=== PATIENT | male | born 1940 | race Caucasian/White ===

== ENCOUNTER 2018-05-16 08:50 | Inpatient (IN) | payer MEDICARE, BC ==
[~2018-05-16 08:50] MED LIST: ASPIRIN E.C. 8181 MG PO; AVODART 0.5MG0.5 MG; CALTRATE 600 +1 TAB; CENTRUM SILVER1 CTB; CLARITIN 1010 MG/TAB PO; COZAAR100 MG; FLOMAX 0.40.4 MG/CAP; LOPRESSOR 225 MG/TAB PO; METAMUCIL0.52 GM; MUCINEX DM 30 M1 TE1; NASACORT AQ N16.5 GM; NORVASC2.5 MG PO; PRIL40; [UNRECOGNIZED DRUG - SUPPLY]
[2018-05-16] MEDS ORDERED: PROSCAR 5MG5 MG PO (09:05)
[2018-05-16] MEDS ORDERED: CENTRUM SILVER1 TA2 PO (09:06)
[2018-05-16] MEDS ORDERED: COUMADIN 5MG5 MG/TAB PO (09:06)
[2018-05-16] MEDS ORDERED: FLOMAX 0.40.4 MG/CAP PO (09:06)
[2018-05-16] MEDS ORDERED: CALTRATE-600 W600 MG PO (09:07)
[2018-05-16] MEDS ORDERED: NASACORT OTC NS (09:07)
[2018-05-16] MEDS ORDERED: METAMUCIL3.4 GM/DOS PO (09:07)
[2018-05-16] MEDS ORDERED: PRIL40 PO (09:07)
[2018-05-16 09:25] VITALS: BP 150/91; PULSE 73; TEMP 97.9
[2018-05-16 09:58] LABS: BASO % 0.6 % (0.0-2.0); EOS # 0.2 (0.0-0.7); EOS % 4.1 % (0-4.0); GRAN # 2.7 (1.4-6.5); GRAN % 53.4 % (42.2-75.2); HEMATOCRIT 40.5 % (42.0-52.0); HEMOGLOBIN 13.7 g/dl (13.5-18.0); LYMPH # 1.6 (1.2-3.4); MEAN CELL VOLUME 96 fl (80.0-100.0); MEAN CORPUSCULAR HEMOGLOBIN 32 pg (27.0-31.0); MEAN CORPUSCULAR HGB CONC 34 g/dl (33.0-37.0); MEAN PLATELET VOLUME 10.1 fl (7.4-10.4); MONO # 0.5 (0.1-0.6); MONO % 9.5 % (1.7-9.3); PLATELET COUNT 105 K/mm3 (130-400); RED BLOOD COUNT 4.23 M/mm3 (4.20-5.60); REDCELL DISTRIBUTION WIDTH-CV 13.3 % (11.5-14.5)
[2018-05-16 10:02] LABS: PROTHROMBIN TIME 34.2 SECONDS (9.7-12.8)
[2018-05-16 10:08] LABS: ALBUMIN 4.1 gm/dL (3.5-5.0); BILIRUBIN,TOTAL 0.7 mg/dL (0.0-1.0); CREATININE, serum 0.92 mg/dL (0.66-1.25); MAGNESIUM 1.9 mg/dL (1.6-2.3); POTASSIUM 4.5 mmol/L (3.4-5.0); TOTAL PROTEIN 6.7 gm/dL (6.4-8.2)
[2018-05-16 11:45] VITALS: BP 161/99; PULSE 57; TEMP 97.9
[2018-05-16 16:41] VITALS: BP 149/87; PULSE 67; TEMP 98
[2018-05-16 20:20] VITALS: BP 154/81; PULSE 67; TEMP 98
[2018-05-17] VITALS (7 sets, daily range): BP systolic 132–160; BP diastolic 72–92; PULSE 50–78; TEMP 97.3–97.9
[2018-05-17 06:49] LABS: INR 2.7 (0.8-3.0); PROTHROMBIN TIME 31.2 SECONDS (9.7-12.8)
[2018-05-17 06:52] LABS: CREATININE, serum 0.87 mg/dL (0.66-1.25); MAGNESIUM 1.9 mg/dL (1.6-2.3)
[2018-05-18] VITALS (7 sets, daily range): BP systolic 123–143; BP diastolic 68–89; PULSE 49–68; TEMP 97.7–98.5
[2018-05-18 06:14] LABS: INR 2.6 (0.8-3.0); PROTHROMBIN TIME 29.1 SECONDS (9.7-12.8)
[2018-05-18 06:24] LABS: CALCIUM 8.9 mg/dL (8.4-10.2); CREATININE, serum 0.89 mg/dL (0.66-1.25); MAGNESIUM 1.9 mg/dL (1.6-2.3); POTASSIUM 4.2 mmol/L (3.4-5.0)
[2018-05-18 06:53] LABS: THYROID STIMULATING HORMONE 2.95 uIU/mL (0.465-4.680)
[2018-05-18] MEDS ORDERED: BETAPACE 80MG80 MG PO (10:41)
== END 2018-05-18 13:15 | disposition home or self-care (01) | DRG 310 ==
LOC: MEDICAL 08:50
PROVIDERS: Internal Medicine Cardiovascular Disease
PROC: 5A2204Z Restoration of Cardiac Rhythm, Single (ICD-10-PCS; principal; 2018-05-18)
DX: I48.0 Paroxysmal atrial fibrillation (principal); I48.92 Unspecified atrial flutter; Z95.2 Presence of prosthetic heart valve; I10 Essential (primary) hypertension; I27.22 Pulmonary hypertension due to left heart disease; I34.1 Nonrheumatic mitral (valve) prolapse
CPT/HCPCS: J7030

== ENCOUNTER 2018-08-30 13:24 | Inpatient (IN) | payer MEDICARE, BC ==
[~2018-08-30] VITALS: Ht 188.1 cm; Wt 85.0 kg
[~2018-08-30 13:24] MED LIST changes: +BETAPACE 80MG80 MG PO; +BRILINTA90 MG PO; +CALTRATE-600 W600 MG PO; +CENTRUM SILVER1 TA2 PO; +COUMADIN 5MG5 MG/TAB PO; +FLOMAX 0.40.4 MG/CAP PO; +LIPITOR 10MG10 MG PO; +METAMUCIL3.4 GM/DOS PO; +NASACORT OTC NS; +PRIL40 PO; +PROSCAR 5MG5 MG PO
[2018-10-24] VITALS (8 sets, daily range): BP systolic 123–166; BP diastolic 60–88; PULSE 47–68; TEMP 97.6–98.2
[2018-10-24] MEDS ORDERED: MYRBETR50MG PO (09:24)
--- NOTE | 2018-10-24 14:35 | NUR ---
PATIENT ADMITED INTO ROOM 327 POST OP LTK. ORIENTED BUT VERY DROWSY. VSS. DENIES PAIN. PATIENT IS UNABLE TO MOVE BLE. LTK DRESSING IS CD&I WITH AQUACEL AND CRYOCUFF INPLACE. TEDS & SCD'S TO BLE. POSITIVE PEDAL PULSES TO BLE. NICKERSON TO DEPENDENT DRAINAGE WITH SMALL AMOUNTS OF CLEAR YELLOW URINE NOTED. IV FLUIDS INFUSING VIA PUMP. HEAD TO TOE ASSESSMENT WNL. NO OTHER NEEDS. LEFT TO GO HOME. CALL LIGHT IN REACH. PATIENT SLEEPING.
--- NOTE | 2018-10-24 19:27 | NUR ---
Assessment completed. Patient is A&O x 4. VSS, currently on 3 liters of supplemental O2 via nasal cannula. Denies any pain at this time. Aquacell dressing to left knee is CDI with cryocuff maintained to knee. Pedal pulses intact. BLE meagan hose/scds on. Tolerating diet with no c/o nausea. Crowder catheter to DD with yellow clear urine draining. IVF infusing with intermittent antibiotic per orders. Denies any concerns or needs at this time. Bed is in a low position with call light in reach.
--- NOTE | 2018-10-24 21:29 | NUR ---
Patient ambulated 100 feet with assist x 1 with walker and gait belt in the hallway this evening, gait steady. Reported minimal pain to left knee when ambulating, continues to deny needing any pain medication.
--- NOTE | 2018-10-25 01:23 | NUR ---
Patient is resting in bed watching television. Patient has been unable to sleep states he's just not tired. Continues to deny any pain.
[2018-10-25 03:58] VITALS: BP 125/75; PULSE 62; TEMP 97.5
--- NOTE | 2018-10-25 04:38 | NUR ---
Patient has rested for short periods of time through the night, reports he hasn't really been tired. Continues to report minimal pain to left knee, denies needing any nunes medication. Aquacell dressing to left knee has a scant area of drainage, cryocuff maintained to knee. Crowder catheter remains to DD with yellow clear urine draining. IVF to INT this morning after last dose of antibiotic. Denies any concerns or needs, call light remains within reach.
[2018-10-25 06:43] LABS: HEMOGLOBIN 12.7 g/dl (13.5-18.0)
[2018-10-25 06:51] LABS: HEMATOCRIT 35.7 % (42.0-52.0)
--- NOTE | 2018-10-25 08:00 | NUR ---
PATIENT IS A&O. VSS. RATES PAIN IN LLE AT 2-3 ON PAIN SCALE. DENIES NEED FOR PAIN MEDS. GAVE SCHEDULED TYLENOL WITH AM MEDS. BREAKFAST TRAY AT BEDSIDE. NO C/O N/V. IV TO INT. HEAD TO TOE ASSESSMENT WNL. LTK DRESSING IS CD&I WITH AQUACEL AND CRYOCUFF INPLACE. TEDS TO BLE. SCD'S CURRENTLY OFF. POSITIVE PEDAL PULSES TO BLE. NICKERSON TO DEPENDENT DRAINAGE WITH MOD AMOUNTS OF CLEAR YELLOW URINE NOTED. NO OTHER NEEDS. CALL LIGHT IN REACH.
[2018-10-25 08:47] VITALS: BP 137/59; PULSE 61; TEMP 97.6
--- NOTE | 2018-10-25 10:41 | NUR ---
Initial visit; Patient thanked Accounts Payable Processor for looking in on him, offering God's blessings and keeping him in her prayers.
[2018-10-25 12:03] VITALS: BP 126/61; PULSE 52; TEMP 97.5
--- NOTE | 2018-10-25 14:17 | NUR ---
SW and SW student met with patient to discuss discharge planning. Patient lives in [place] with his Latisha. He has a walker and cane and plans on doing outpatient PT at [facility]. Patients PCP is Dr Carlos Manuel Owens and he obtains his medications from [facility]. Patient does not have any anticipated discharge needs at this time.
[2018-10-25 15:51] VITALS: BP 117/58; PULSE 60; TEMP 97.3
--- NOTE | 2018-10-25 19:45 | NUR ---
Assessment completed. Patient is A&O x 4. VSS, on room air. Reports stiffness and more soreness this evening, denied wanting to take any stronger medication than the scheduled Tylenol at this time. Aquacell dressing to left knee has a small amount of drainage. Cryocuff maintained to knee. Pedal pulses intact. BLE meagan hose/scds on. Tolerating diet with no c/o nausea. Voiding with no difficulities. INT to left wrist. Up with standby assist with walker, gait is steady. Ambulated 100 feet this evening in the hallway. Denies any concerns or needs, call light is within reach.
[2018-10-25 21:52] VITALS: BP 105/63; PULSE 80; TEMP 98.5
[2018-10-25 23:57] VITALS: BP 110/59; PULSE 76; TEMP 98.3
[2018-10-26 04:34] VITALS: BP 141/62; PULSE 59; TEMP 98.6
--- NOTE | 2018-10-26 05:13 | NUR ---
Patient has rested well through the night. VSS, remains on room air. Continues to deny needing anything more for pain than the scheduled Tylenol. Aquacell dressing to right knee with a small amount of drainage, no increase through the shift. Cryocuff maintained to right knee. Up with standby assist to the bathroom through the night, gait remains steady. Denies any concerns or needs at this time. Bed remains in a low position with call light in reach.
--- NOTE | 2018-10-26 06:40 | NUR ---
awake resting in bed, bedside shift report received from MARVIN Keyes
[2018-10-26 07:25] VITALS: BP 144/61; PULSE 58; TEMP 97.7
[2018-10-26 07:27] LABS: INR 1.4 (0.8-3.0); PROTHROMBIN TIME 15.8 SECONDS (9.7-12.8)
--- NOTE | 2018-10-26 07:30 | NUR ---
awake resting in bed, has ordered breakfast, full assessment completed, see interventions for further info
--- NOTE | 2018-10-26 08:45 | NUR ---
up in chair and denies needs, awaiting therapy
--- NOTE | 2018-10-26 09:31 | NUR ---
ambulated out to [facility] with physical therapy for grroup exercises
[2018-10-26] MEDS ORDERED: NORCO 325 MG-7.1 TAB PO (10:04)
[2018-10-26] MEDS ORDERED: TYLENOL 500MG500 MG PO (10:05)
[2018-10-26] MEDS ORDERED: ROXICODONE 55 MG/TAB PO (10:05)
--- NOTE | 2018-10-26 11:55 | NUR ---
discharge instructions given to patient and his , verbalizes understanding
--- NOTE | 2018-10-26 12:10 | NUR ---
discharged per WC
== END 2018-10-26 12:10 | disposition home or self-care (01) | DRG 470 ==
LOC: JCC 10-24 07:30
PROVIDERS: Nurse Practitioner Family; ADMIT Orthopaedic Surgery
PROC: 0SRD0J9 Replacement of Left Knee Joint with Synthetic Substitute, Cemented, Open Approach (ICD-10-PCS; principal; 2018-10-24 14:45)
DX: M17.12 Unilateral primary osteoarthritis, left knee (principal); Z87.891 Personal history of nicotine dependence
CPT/HCPCS: A4314; A9284; C1713; C1776; J0690; J1100; J1885; J2250; J2405; J2704; J3010; J7120

== ENCOUNTER → 2018-10-17 | Outpatient (CLI) | payer MEDICARE, BC ==
[2018-10-17 14:04] LABS: HIV 1/2 Antibodies Non-Reactive; HIV-1p24 Antigen Non-Reactive
== END ==
LOC: COL.LAB 13:01
PROVIDERS: Orthopaedic Surgery
DX: Z01.812 Encounter for preprocedural laboratory examination (principal); M17.12 Unilateral primary osteoarthritis, left knee

== ENCOUNTER 2019-04-28 10:20 | Inpatient (IN) | payer MEDICARE, BC ==
[~2019-04-28] VITALS: Ht 188.1 cm; Wt 87.0 kg
[~2019-04-28 10:20] MED LIST changes: +MYRBETR50MG PO; +NORCO 325 MG-7.1 TAB PO; +ROXICODONE 55 MG/TAB PO; +TYLENOL 500MG500 MG PO
[2019-05-17] MEDS ORDERED: BETAPACE AF80 MG/TA1 PO (12:42)
[2019-05-17] MEDS ORDERED: PROSVENT PO (12:43)
[2019-05-17] MEDS ORDERED: allergy relief (12:44)
[2019-05-17] MEDS ORDERED: VITAMIN C500 MG PO (12:45)
[2019-05-17] MEDS ORDERED: NATURAL IRON65 MG PO (12:45)
[2019-05-17] MEDS ORDERED: UROXATRAL10 M1 PO (12:46)
[2019-05-17] MEDS ORDERED: MELATIN 3 MG-11 TAB PO (12:47)
[2019-05-17] MEDS ORDERED: KEPPRA 500MG500 MG PO (12:47)
[2019-05-17] MEDS ORDERED: NASONEX SPRAY17 GM NS (12:48)
[2019-06-27] VITALS (11 sets, daily range): BP systolic 127–174; BP diastolic 59–87; PULSE 40–63; TEMP 97.3–98
[2019-06-27 07:27] LABS: INR 1.2 (0.8-3.0)
[2019-06-27] MEDS ORDERED: COUMADIN 6MG6 MG/TAB PO (07:36)
[2019-06-27] MEDS ORDERED: COUMADIN 1MG1 MG/TAB PO (07:37)
--- NOTE | 2019-06-27 07:59 | NUR ---
PT ADMITTED AMBULATORY TO ROOM 327 @0645. PRE OP MEDS GIVEN ORDERED.
--- NOTE | 2019-06-27 12:37 | NUR ---
PT TO ROOM 327 PER BED WITH REPORT FROM JOSH WONG PACU @3890. PT IS A/O X3, VSS, LUNGS CLEAR, VSS, PT IS APNIC AND HAS CPAP BUT REFUSES TO USE IT. DRESSING TO RIGHT KNEE CDI. SCDS AND POLAR PACK INPLACE.
--- NOTE | 2019-06-27 12:49 | NUR ---
PT IS APNIC WITH HR HUANG DOWN TO 40'S AND O2 SATS TO MID 80'S. PT REFUSING TO USE HOME CPAP. PT STATES I AM FINE AND DONT NEED IT.
--- NOTE | 2019-06-27 14:44 | NUR ---
SW attempted to meet with the patient but he was hard to rouse. SW will attempt at a later time.
--- NOTE | 2019-06-27 19:00 | NUR ---
report to Gael WONG.
--- NOTE | 2019-06-27 19:37 | NUR ---
Sitting up in bed with eyes open. Rates pain in right knee 2-3/10 and describes as a hurt. SCDs on, cryo in place, Mathew hose on. Anand bandage dressing to right knee clean, dry, and intact. Crowder patent. INT in left FA without redness, drainage, or edema. Patient denies further needs at this time.
--- NOTE | 2019-06-27 21:28 | NUR ---
Ambulates from room to nurses station and back to room with assistance of one, use of walker. Gait steady. Toelrates well. Returns to bed. SCDs applied and cryo resumes. Dressing to right knee CDI. Patient denies further needs.
--- NOTE | 2019-06-28 00:10 | NUR ---
LYING IN BED WITH EYES OPEN. EXPLAINS PAIN IS MINIMAL AND MOVMENT INCREASES PAIN. DRESSING TO RIGHT KNEE CDI. PATIENT DENIES FURTHER NEEDS AT THIS TIME.
--- NOTE | 2019-06-28 00:20 | NUR ---
Patient requests pain pill for pain 2/10 in right knee. Administered pain medication as ordered. Patient declines further needs at this time.
--- NOTE | 2019-06-28 02:46 | NUR ---
Lying in bed with eyes closed. Respirations even and unlabored. No signs or symptoms of discomfort noted.
[2019-06-28 04:00] VITALS: BP 128/61; PULSE 58; TEMP 98
--- NOTE | 2019-06-28 04:21 | NUR ---
Lying in bed with eyes open. Explains that his pain is not bad at this time, 10/06. Dressing to right knee CDI. Crowder patent. Patient denies further needs at this time.
[2019-06-28 06:26] LABS: HEMOGLOBIN 12.4 g/dl (13.5-18.0)
[2019-06-28 06:40] LABS: HEMATOCRIT 36.3 % (42.0-52.0)
--- NOTE | 2019-06-28 06:45 | NUR ---
Bedside shift report received from MARVIN Chacon. PT in bed resting, waiting on breakfast. Denies needs. R knee has RUSSELL, cryocuff and SCD in place. Will continue to monitor.
[2019-06-28 07:58] VITALS: BP 142/67; PULSE 64; TEMP 97.8
--- NOTE | 2019-06-28 08:48 | NUR ---
Assessment charted. Pt doing well, minimal pain, wants to try and manage with PO tylenol. Discussed option for PO ultram PRN as well. RUSSELL bandage removed, minimal drainage present on aquacel. Cryocuff in place, SCD in place. Pt doing well, taking PO well, passing gas. Will remove muro catheter after therapy, draining clear yellow urine at this time. INT to LFA. Instructed on IS usage hourly. Will continue to monitor.
[2019-06-28 11:35] VITALS: BP 142/70; PULSE 60; TEMP 98.7
[2019-06-28 11:47] LABS: INR 1.3 (0.8-3.0); PROTHROMBIN TIME 14.7 SECONDS (9.7-12.8)
--- NOTE | 2019-06-28 11:55 | NUR ---
Called Stefani Perez NP regarding coumadin dosing per [place] Pharmacist. RADHA left
--- NOTE | 2019-06-28 14:20 | NUR ---
DILAN met with the patient to discuss a discharge plan. The patient lives in [place] with his , Mahogany. The patient has a cane and a walker and a CPAP machine. The patient's PCP is Dr. Woody and patient receives medications from [facility] with no difficulties. The patient does not have advanced directives in the EMR and was not interested in a DPOA-HC form. The patient plans to return home with outpatient physical therapy at [facility]. The patient's , Mahogany will provide transportation. There are no additional needs at this time.
[2019-06-28 16:48] VITALS: BP 167/62; PULSE 57; TEMP 97.5
--- NOTE | 2019-06-28 17:55 | NUR ---
Pt resting with eyes closed. Resolution received from Dr. Enriquez's nurse for coumadin dose tonight. Denies needs, PRN pain meds provided, pt voided per urinal. No new drainage to R knee. Cryocuff in place, SCDs. Will give bedside shift report to nightshift nurse who will resume care.
[2019-06-28 20:39] VITALS: BP 167/74; PULSE 79; TEMP 97.7
--- NOTE | 2019-06-28 20:41 | NUR ---
Patient assesment completed. Patient here with RTK, open aquacell dressing placed. Supposed to change dressing tomorrow. Is INT to L forearm. Patient does have cardiac history of a-fib. Patient denies pain at this time. Patient up sitting in chair with cryo cuff on right knee. Patient has no concerns at this time, call light within reach. Will continue to monitor
[2019-06-29 00:32] VITALS: BP 152/73; PULSE 74; TEMP 97.6
[2019-06-29 04:07] VITALS: BP 128/75; PULSE 68; TEMP 98.1
--- NOTE | 2019-06-29 05:46 | NUR ---
Patient awake in room. Cryo cuff on right knee. Patient denies pain at this time and has no concerns. Call light within reach, will continue to monitor
[2019-06-29] MEDS ORDERED: NORCO 325 MG-7.1 TAB PO (06:35)
[2019-06-29] MEDS ORDERED: ULTRAM 50MG TAB50 MG PO (06:35)
[2019-06-29] MEDS ORDERED: COUMADIN 5MG5 MG/TAB PO (06:37)
--- NOTE | 2019-06-29 07:08 | NUR ---
Report from Albina WONG.
[2019-06-29 07:25] LABS: INR 1.6 (0.8-3.0); PROTHROMBIN TIME 19.1 SECONDS (9.7-12.8)
[2019-06-29 08:40] VITALS: BP 144/63; PULSE 65; TEMP 97.3
--- NOTE | 2019-06-29 09:00 | NUR ---
PT UP IN BED FOR BREAKFAST. PROXIMAL DRAINAGE NOTED ON AQUACEL. POLAR PACK INPLACE AND COLD. PT DENIES NEEDS, NO N/V. ATE 100 % OF BREAKFAST TRAY. TEDS REPLACED BILATRALLY/
--- NOTE | 2019-06-29 09:35 | NUR ---
Initial visit; Patient thanked Instrumentation Supervisor for looking in on him and offering God's blessings. Patient stated his Senior Sous Chef had been with him befor his surgical procedure yesterday.
[2019-06-29] MEDS ORDERED: COUMADIN 3MG3 MG/TAB PO (10:44)
[2019-06-29 11:54] VITALS: BP 120/59; PULSE 63; TEMP 97.4
--- NOTE | 2019-06-29 14:42 | NUR ---
DISCHARGE INSTRUCTIONS REVIEWED WITH PATIENT AND FAMLIY. QUESTIONS SOLICITED AND ANWERED. PT TAKEN TO FRONT VIA WHEEL CHAIR.
--- NOTE | 2019-06-29 14:43 | NUR ---
DRESSING CHANGE COMPLETE PRIOR TO DISCHARGE.
== END 2019-06-29 14:44 | disposition home or self-care (01) | DRG 470 ==
LOC: JCC 06-27 06:34
PROVIDERS: Nurse Anesthetist, Certified Registered; ADMIT Orthopaedic Surgery
PROC: 0SRC0J9 Replacement of Right Knee Joint with Synthetic Substitute, Cemented, Open Approach (ICD-10-PCS; principal; 2019-06-27 10:15)
DX: M17.11 Unilateral primary osteoarthritis, right knee (principal); I48.91 Unspecified atrial fibrillation; M21.161 Varus deformity, not elsewhere classified, right knee; N40.1 Benign prostatic hyperplasia with lower urinary tract symptoms; Z98.890 Other specified postprocedural states; Z87.891 Personal history of nicotine dependence; Z79.01 Long term (current) use of anticoagulants
CPT/HCPCS: A4314; A9284; C1776; J0690; J2250; J2405; J2704; J3370; J7030; J7120

== ENCOUNTER 2019-05-17 11:08 | Day surgery (SDC) | payer MEDICARE, BC ==
[2019-05-17] VITALS (10 sets, daily range): BP systolic 133–154; BP diastolic 69–91; PULSE 50–72; TEMP 96.4–97.6
[~2019-05-17] VITALS: Ht 188 cm; Wt 86.8 kg
[2019-05-17] MEDS ORDERED: BETAPACE AF80 MG/TA1 PO (12:42)
[2019-05-17] MEDS ORDERED: PROSVENT PO (12:43)
[2019-05-17] MEDS ORDERED: allergy relief (12:44)
[2019-05-17] MEDS ORDERED: NATURAL IRON65 MG PO (12:45)
[2019-05-17] MEDS ORDERED: VITAMIN C500 MG PO (12:45)
[2019-05-17] MEDS ORDERED: UROXATRAL10 M1 PO (12:46)
[2019-05-17] MEDS ORDERED: KEPPRA 500MG500 MG PO (12:47)
[2019-05-17] MEDS ORDERED: MELATIN 3 MG-11 TAB PO (12:47)
[2019-05-17] MEDS ORDERED: NASONEX SPRAY17 GM NS (12:48)
--- NOTE | 2019-05-17 15:15 | NUR ---
PATIENT ARRIVED TO ROOM 348 VIA BED FROM PACU. PATIENT IS DROWSY BUT A&O. POST-OP VSS. IV FLUIDS INFUSING TO RIGHT FOREARM IV VIA PUMP. 3-WAY NICKERSON CATHETER TO DEPENDENT DRAINAGE WITH CBI INFUSING AT A FAST RATE. BOWEL SOUNDS ACTIVE. PATIENT TOLERATING CLEAR LIQUIDS WITHOUT COMPLAINTS OF N/V. POSITIVE PEDAL PULSES EQUAL BILATERALLY. SCD'S TO BLE. CALL LIGHT WITHIN REACH.
--- NOTE | 2019-05-17 19:00 | NUR ---
PATIENT POST-OP VITAL SIGNS COMPLETE. PATIENT TOLERATING A REGULAR DIET. REPORT GIVEN TO MARVIN BOYCE.
--- NOTE | 2019-05-17 20:00 | NUR ---
Report received. Assumed care for night auditor. Assessment complete. VS stable. CBI at a slow rate with dark red return-small clots present. Increased rate to moderate. Tubing flushed due to clots stuck to side of tubing causing back up into bladder. Denies pain. IV to Right FA infusing 1/2 NS with 20mEq KCL at 100ml/hr. Denies nausea-tolerating PO. INT at this time. Denies questions or concerns. Plan of care discussed for maintaining CBI through the night. Verbalizes understanding. Call light in reach. Bed in low position/wheeels locked. WIll monitor.
--- NOTE | 2019-05-18 01:00 | NUR ---
CBI continues to run at a moderate rate-output light red to dark red. No clots present. Will continue to monitor.
[2019-05-18 03:52] VITALS: BP 112/61; PULSE 65; TEMP 97.7
--- NOTE | 2019-05-18 05:00 | NUR ---
Rested well later this shift. CBI continues to run at a slow to moderate rate-output light red. Denies pain. Encouraged to call for questions or concerns. Will monitor.
[2019-05-18 07:42] VITALS: BP 110/54; PULSE 63; TEMP 97.1
--- NOTE | 2019-05-18 08:00 | NUR ---
UPON ENTRY TO THE ROOM PATIENT IS SITTING UP IN THE BED WITH HIS BREAKFAST TRAY. PATIENT IS A&OX4. VSS. BOWEL SOUNDS ACTIVE ALL FOUR QUADRANTS. PATIENT TOLERATIND DIET WITHOUT ANY COMPLAINTS OF N/V. PATIENT DENIES PAIN. POSITIVE PEDAL PULSES EQUALL BILATERALLY. 1+ PITTING-EDEMA TO BLE. SCD'S TO BLE. 3-WAY NICKERSON CATHETER TO DEPENDENT DRAINAGE WITH CBI INFUSING AT A MODERATE RATE. RIGHT FOREARM TO INT. CALL LIGHT WITHIN REACH. PATIENT DENIES ANY NEEDS AT THIS TIME.
--- NOTE | 2019-05-18 09:41 | NUR ---
DILAN met with the patient to discuss a discharge plan. The pt lives in [place] with his , Mahogany. The pt has a CPAP and reports independence with ADLs. The pt's PCP is Dr. Owens and pt receives medications from [facility] with no difficulties. The pt does not have advanced directives in the EMR but reports they are completed and designate Mahogany. The pt plans to return home upon discharge with Mahogany providing transportation. There are no additional needs at this time.
--- NOTE | 2019-05-18 11:36 | NUR ---
Initial visit; Patient thanked Beaming Machine Operator for looking in on him and offering prayer and God's blessings.
[2019-05-18 11:56] VITALS: BP 119/58; PULSE 59; TEMP 97.6
[2019-05-18 15:56] VITALS: BP 120/64; PULSE 57; TEMP 97.9
--- NOTE | 2019-05-18 18:55 | NUR ---
REPORT GIVEN TO MARVIN BOYCE.
[2019-05-18 20:00] VITALS: BP 145/67; PULSE 888; TEMP 98.1
--- NOTE | 2019-05-18 20:00 | NUR ---
Report received. Assumed care for rn shift mgr. Assessment complete. VS stable. Denies pain, nausea or shortness of air. CBI running at a moderate rate with light pink return-occasional small clot. Plan of care discussed. Denies questions or concerns. Call light in reach. Bed in low. Encouraged to call for questions or concerns. Will monitor.
[2019-05-19] VITALS: BP 138/56; PULSE 68; TEMP 98.1
[2019-05-19 04:56] VITALS: BP 142/69; PULSE 50; TEMP 98
--- NOTE | 2019-05-19 05:40 | NUR ---
Prime and pulled at this time. Instilled 300mls NS. Tolerated well.
[2019-05-19 07:23] VITALS: BP 137/68; PULSE 52; TEMP 97.4
--- NOTE | 2019-05-19 08:00 | NUR ---
PATIENT SITTING UP IN THE CHAIR UPON ENTRY TO THE ROOM. PATIENT IS A&OX4. VSS. BOWEL SOUNDS ACTIVE ALL FOUR QUADRANTS. PATIENT TOLERATING DIET WITHOUT ANY COMPLAINTS OF N/V. POSITIVE PEDAL PULSES EQUAL BILATERALLY. 1+ PITTING-EDEMA TO BLE. RIGHT FOREARM TO INT. PATIENT DENIES PAIN. 6 CUP ROUTINE COMPLETE. PATIENT DENIES ANY OTHER NEEDS AT THIS TIME.
[2019-05-19 11:14] VITALS: BP 134/66; PULSE 52; TEMP 97.4
--- NOTE | 2019-05-19 14:41 | NUR ---
PATIENT'S RIGHT FOREARM INT DISCONTINUED PER PENDING DISCHARGE. TIP INTACT. PATIENT TOLERATED WELL.
--- NOTE | 2019-05-19 15:10 | NUR ---
DISCHARGE INSTRUCTIONS REVIEWED WITH PATIENT AND . ALL QUESTIONS ANSWERED. PATIENT PERSONAL BELONGINGS GATHERED.
--- NOTE | 2019-05-19 15:15 | NUR ---
PATIENT TAKEN TO PERSONAL VEHICLE BY SURGICAL STAFF. PATIENT DISCHARGED.
== END 2019-05-19 15:15 | disposition home or self-care (01) ==
LOC: SDCO 11:08 → SURG 15:15 → SDCO 05-19 15:15
DX: N40.1 Benign prostatic hyperplasia with lower urinary tract symptoms (principal); N13.8 Other obstructive and reflux uropathy; R32 Unspecified urinary incontinence; R35.0 Frequency of micturition; R33.8 Other retention of urine; R35.1 Nocturia; E11.40 Type 2 diabetes mellitus with diabetic neuropathy, unspecified; I10 Essential (primary) hypertension; I48.91 Unspecified atrial fibrillation; Z79.899 Other long term (current) drug therapy; E78.00 Pure hypercholesterolemia, unspecified; E78.1 Pure hyperglyceridemia; R36.1 Hematospermia; I34.1 Nonrheumatic mitral (valve) prolapse; Z79.01 Long term (current) use of anticoagulants; Z87.891 Personal history of nicotine dependence; Z80.3 Family history of malignant neoplasm of breast; Z80.42 Family history of malignant neoplasm of prostate; Z83.3 Family history of diabetes mellitus; Z82.49 Family history of ischemic heart disease and other diseases of the circulatory system
CPT/HCPCS: OP; J0690; J1100; J2405; J2704; J3010; J3480; J7120